=== PATIENT | male | born 1985 | race Caucasian/White ===

== ENCOUNTER 2021-08-08 20:16 | Emergency (ER) | payer OTHER ==
--- NOTE | 2021-08-08 21:56 | EDM.PDOC ---
ED HPI GENERAL MEDICAL PROBLEM - General Chief Complaint: ENT Problem Stated Complaint: POSSIBLE DOUBLE EAR INFECTION Time Seen by Provider: 08/08/21 21:48 Source of Information: Reports: Patient History Limitations: Reports: No Limitations - History of Present Illness INITIAL COMMENTS - FREE TEXT/NARRATIVE: HISTORY AND PHYSICAL: History of present illness: Patient is a 36-year-old male who presents to the emergency room with complaints of bilateral ear infection that he feels is not resolving as he has muffled hearing. He was seen on Saturday for a bilateral ear infection and placed on antibiotics. He states the pain is improved but he feels like he is unable to hear well. Patient denies any fever, chills, headache, change in vision, syncope or near syncope. Denies any chest pain, back pain, shortness of breath or cough. Denies any abdominal pain, nausea, vomiting, diarrhea, constipation or dysuria. Has not noted any blood in urine or stool. Patient has been eating and drinking appropriately. No recent travel or sick contacts. Review of systems: As per history of present illness and below otherwise all systems reviewed and negative. Past medical history: As per history of present illness and as reviewed below otherwise noncontributory. Surgical history: As per history of present illness and as reviewed below otherwise noncontributory. Social history: See social history for further information Family history: As per history of present illness and as reviewed below otherwise noncontributory. Physical exam: General: Well developed and well nourished. Alert and orientated x 3. Nontoxic in appearance and in no acute distress. Vital signs are stable and have been reviewed by me. Nursing notes were reviewed. HEENT: Atraumatic, normocephalic, pupils equal and reactive bilaterally, negative for conjunctival pallor or scleral icterus, mucous membranes moist, TMs erythematous bilaterally with fluid behind TMs bilaterally, throat clear, neck s upple, nontender, trachea midline. No drooling or trismus noted. No meningeal signs. No hot potato voice noted. Lungs: Clear to auscultation bilaterally. No wheezes, rales, or rhonchi. Chest nontender. Normal work of breathing, no accessory muscles used. Heart: S1S2, regular rate and rhythm without overt murmur, gallops, or rubs. No JVD. No peripheral edema Abdomen: Soft, nondistended, nontender. Skin: Intact, warm, dry. No lesions or rashes noted. Hematologic: No petechiae or purpra. Mucosa appropriate color and normal nail bed color and refill. Extremities: Atraumatic, moves all extremities per self without difficulty or deficits, negative for cords or calf pain. Neurovascular unremarkable. Neuro: Awake, alert, oriented. Cranial nerves II through XII unremarkable. Cerebellum unremarkable. Motor and sensory unremarkable throughout. Exam nonfocal. Psychiatric: Mood and affect are appropriate. Normal thought process. Answering questions appropriately. Please note that the patient was seen and evaluated during the 2019 SARS-CoV-2 novel coronavirus pandemic period. Community viral transmission is ongoing at time of this encounter and the emergency department is operating under pandemic response procedures. Medical Decision Making: Patient appears to have fluid behind his TMs. Continues to have bilateral ear infection in which he is taking an antibiotic. After discussing with the patient we will keep him on the antibiotic he is on as he is feeling improved. We did discuss taking antihistamine and nasal spray to help with the sensation he is feeling. I have talked with the patient about today's findings, in addition to providing specific details for plan of care. Reassessment at the time of disposition demonstrates that the patient is in no acute distress. The patient is stable for discharge, counseling was provided and we discussed in great detail signs and symptoms that would prompt them to return to the Emergency Department. Medication, follow up and supportive care measures were reviewed and discussed. Voices understanding and is agreeable to plan of care. Denies any further questions or concerns at this time. Diagnostics: None Therapeutics: None Prescription: None Impression: Bilateral ear infection Plan: 1. You were evaluated today on an emergent basis. Your ear infection appears to be improving. Continue to take your medications as directed. You can take Flonase to help clear the eustachian tube as you do have fluid behind the ear as well. You can also take a Claritin, Benadryl or any [id number] histamine to help dry that up. If you continue to have problems with your hearing, follow-up with strategic partnership manager as we discussed. 2. You can alternate Tylenol and ibuprofen as needed for pain and fever management. 3. We encourage you to follow up with your primary care provider and/or recommended specialist in the next few days for re-evaluation and further care/management. 4. If your symptoms should worsen, new symptoms develop or any of the signs and symptoms we discussed should arise please return to the emergency room or call 911 (if needed). Definitive disposition and diagnosis as appropriate pending reevaluation and review of above. Social & Family History - Tobacco Use Tobacco Use Status *Q: Current Every Day Tobacco User Years of Tobacco use: 20 Packs/Tins Daily: 0.5 Used Tobacco, but Quit: No Second Hand Smoke Exposure: Yes - Recreational Drug Use Recreational Drug Use: No ED ROS ENT - Review of Systems Review Of Systems: Comprehensive ROS is negative, except as noted in HPI. ED EXAM, ENT - Physical Exam Exam: See Below (See dictation) Course - Vital Signs Last Recorded V/S: Last Vital Signs Temp 97.4 F 08/08/21 21:45 Pulse 84 08/08/21 21:45 Resp 20 08/08/21 21:45 BP 117/72 08/08/21 21:45 Pulse Ox 96 08/08/21 21:45 - Orders/Labs/Meds Orders: Active Orders 24 hr Category Date Time Status Fluticasone Propionate [Flonase] Med 08/08/21 22:00 Ordered 1 gm NASBOTH DAILY Medication Orders Fluticasone Propionate (Fluticasone Propionate Nasal [address] 16 Gm Bottle) 1 gm NASBOTH DAILY BELLE Meds: Medications Generic Name Dose Route Start Last Admin Trade Name Freq PRN Reason Stop Dose Admin Fluticasone Propionate 1 gm 08/08/21 22:[address]ut[address]asone Propionate [address] 16 Gm Bottle NASBOTH DAILY BELLE Departure - Departure Time of Disposition: 21:55 Disposition: Home, Self-Care 01 Clinical Impression: Otitis media Qualifiers: Otitis media type: suppurative Chronicity: acute Laterality: bilateral Recurrence: non-recurrent Spontaneous tympanic membrane rupture: without spontaneous rupture Qualified Code(s): H66.003 - Acute suppurative otitis media without spontaneous rupture of ear drum, bilateral - Discharge Information Instructions: Otitis Media, Adult, [id number] Referrals: PCP,None [Primary Care Provider] - Forms: ED Department Discharge Additional Instructions: The following information is given to patients seen in the emergency department who are being discharged to home. This information is to outline your options for follow-up care. We provide all patients seen in our emergency department with a follow-up referral. The need for follow-up, as well as the timing and circumstances, are variable depending upon the specifics of your emergency department visit. If you don't have a primary care physician on staff, we will provide you with a referral. We always advise you to contact your personal physician following an emergency department visit to inform them of the circumstance of the visit and for follow-up with them and/or the need for any referrals to a consulting specialist. The emergency department will also refer you to a specialist when appropriate. This referral assures that you have the opportunity for follow-up care with a specialist. All of these measure are taken in an effort to provide you with optimal care, which includes your follow-up. Under all circumstances we always encourage you to contact your private physician who remains a resource for coordinating your care. When calling for follow-up care, please make the office aware that this follow-up is from your recent emergency room visit. If for any reason you are refused follow-up, please contact the [facility] Emergency Department at and asked to speak to the emergency department charge nurse. [facility] [address] [place] [address] [id number] [address] [id number] Thank you for choosing the [facility] emergency department in [place] for your medical needs today. It was a pleasure caring for you. Today you were seen in the emergency department for ear infection. 1. You were evaluated today on an emergent basis. Your ear infection appears to be improving. Continue to take your medications as directed. You can take Flonase to help clear the eustachian tube as you do have fluid behind the ear as well. You can also take a Claritin, Benadryl or any [id number] histamine to help dry that up. If you continue to have problems with your hearing, follow-up with strategic partnership manager as we discussed. 2. You can alternate Tylenol and ibuprofen as needed for pain and fever management. 3. We encourage you to follow up with your primary care provider and/or recommended specialist in the next few days for re-evaluation and further care/management. 4. If your symptoms should worsen, new symptoms develop or any of the signs and symptoms we discussed should arise please return to the emergency room or call 911 (if needed). Sepsis Event Note (ED) - Evaluation Sepsis Screening Result: No Definite Risk - Focused Exam Vital Signs: Vital Signs Temp Pulse Resp BP Pulse Ox 08/08/21 21:45 97.4 F 84 20 117/72 96 - My Orders Last 24 Hours: My Active Orders 08/08/21 22:00 Fluticasone Propionate [Flonase] 1 gm NASBOTH DAILY - Assessment/Plan Last 24 Hours: My Active Orders 08/08/21 22:00 Fluticasone Propionate [Flonase] 1 gm NASBOTH DAILY
[2021-08-08] MEDS ORDERED: Fluticasone Propionate Nasal Spray 16 GM Bottle NASBOTH SCH (22:00)
[2021-08-08] MEDS ORDERED: Oxymetazoline 0.05% Nasal Spray 15 ML Bottle NAS ONE (22:04)
[2021-08-08] MEDS ORDERED: Oxymetazoline 0.05% Nasal Spray 30 ML Bottle NAS ONE (22:35)
== END 2021-08-08 22:40 | disposition home or self-care (01) ==
LOC: MW.ED 20:16
DX: H66.003 Acute suppurative otitis media without spontaneous rupture of ear drum, bilateral (principal); Z72.0 Tobacco use
CPT/HCPCS: 99283; A9270

== ENCOUNTER 2022-02-06 21:44 | Emergency (ER) | payer OTHER ==
[2022-02-06] MEDS ORDERED: Ibuprofen 600 MG Tab PO ONE (23:46)
== END 2022-02-07 00:09 | disposition home or self-care (01) ==
LOC: MW.ED 21:44
DX: I80.02 Phlebitis and thrombophlebitis of superficial vessels of left lower extremity (principal)
CPT/HCPCS: 36415; 85379; 99283; A9270

== ENCOUNTER 2023-04-19 18:05 | Emergency (ER) | payer BC, OTHER ==
[2023-04-19] MEDS ORDERED: Diphtheria,Pertussis(Acell),Tetanus Vaccine 0.5 ML Syringe IM ONE (19:25)
[2023-04-19] MEDS ORDERED: Lidocaine 1% PF 2 ML SDV INJECT ONE (19:25)
[2023-04-19] MEDS ORDERED: Acetaminophen/HYDROcodone 325-5 MG Tab PO ONE (19:26)
[2023-04-19] MEDS ORDERED: ceFAZolin 1 GM Vial IM ONE (20:27)
[2023-04-19] MEDS ORDERED: Water For Injection, Sterile 10 ML SDV INJECT STA (20:32)
[2023-04-19] MEDS ORDERED: Water For Injection, Sterile 20 ML ONE (20:35)
== END 2023-04-19 20:53 | disposition home or self-care (01) ==
LOC: MW.ED 18:05
DX: S62.521B Displaced fracture of distal phalanx of right thumb, initial encounter for open fracture (principal); Z23 Encounter for immunization; W20.8XXA Other cause of strike by thrown, projected or falling object, initial encounter; Y92.89 Other specified places as the place of occurrence of the external cause; Y99.0 Civilian activity done for income or pay
CPT/HCPCS: 11760; 73120; 73140; 90471; 90715; 96372; 99283; A9270; J0690; 12001; J3490

== ENCOUNTER 2023-04-29 08:06 | Emergency (ER) | payer BC | END 2023-04-29 08:29 | disposition left against medical advice (07) | LOC: MW.ED 08:06 | DX: Z53.21 Procedure and treatment not carried out due to patient leaving prior to being seen by health care provider (principal) | CPT/HCPCS: 99281 ==